=== PATIENT | male | born 2000 | race Caucasian/White ===

== ENCOUNTER 2024-10-06 09:00 | Outpatient (OUT) | payer OTHER, SELFPAY ==
--- OUTSIDE RECORDS SUMMARY | 2023-04-21 10:00 | XMS_ITS ---
Author Organization [facility] Address [address] [place] [address] Care Team Providers Care Supervisor Scenic Arts Name Role Phone Mansi Guerrero Primary Care Provider Bonnie Bustamante Unavailable [phone] REASON FOR VISIT FILLING Encounters Encounter Location Date [facility] [address] [facility] [place] [address] 04/21/2023 Bonnie Scott Plan Of Treatment No Information Progress Notes * AMIE DYER:[birth year] (23 yo M)Acc No.[id number]:04/21/2023 Patient: Antolin AGRAWALAMIE Provider: Armida SCOTT DDS :2000 A ge:22 Y S ex:Male Date:04/21/2023 [address] [id number] Pcp:Mansi Guerrero Subjective: * Chief Complaints: * 1 . FILLING. * Medical History: Objective: * Vitals: Assessment: Plan: * Treatment: * Images: * Electronic signature of Verona Scott DDS on 10/06/2024 at 09:05 AM EDT Sign off status: Pending * Provider: Armida SCOTT DDS Date: 04/21/2023 Generated for Printi ng/Faxing/eTransmitting on: 0 10/06/2024 09:05 AM EDT
--- OUTSIDE RECORDS SUMMARY | 2023-09-22 11:40 | XMS_ITS ---
Author Organization [facility] Address [address] [place] [address] Care Team Providers Care Tunnel Heading Supervisor Name Role Phone Mansi Guerrero Primary Care Provider [phone] Shania Nadia Singletary Unavailable [phone] REASON FOR VISIT PROPHY EXAM Encounters Encounter Location Date Provider Diagnosis [facility] [address] [place] [address] 09/22/2023 Nadia Singletary Plan Of Treatment No Information Progress Notes * AMIE DYER:[birth year] (23 yo M)Acc No.[id number]:09/22/2023 Patient: Antolin AGRAWALAMIE Provider: Etienne Singletary :2000 A ge:22 Y S ex:Male Date:09/22/2023 Address: [address] [place], [place] [id number] Pcp:Mansi Guerrero Subjective: * Chief Complaints: * 1 . PROPHY EXAM. * Medical History: Objective: * Vitals: Assessment: Plan: * Treatment: * Images: * Electronic signature of Fadumo Singletary on 10/06/2024 at 09:05 AM EDT Sign off status: Pending * Provider: Etienne Singletary Date: 09/22/2023 Generated for Janiyai ng/Faromulog/eTransmitting on: 10/06/2024 09:05 AM EDT
--- NOTE | 2024-10-06 | CT_ITS ---
The [address] [address] Patient Name: AMIE DYER MRN: [id number] date: 2000 Sex: M Assigned Patient Location: CT Current Patient Location: CT Accession/Order Number: [id number] Exam Date: 10/06/2024 10:53 Report Date: 10/06/2024 11:05 At the request of: CLOVIS HINSON MD Procedure: CT abdomen pelvis w con CT ABDOMEN AND PELVIS WITH INTRAVENOUS CONTRAST: CLINICAL HISTORY: Right upper quadrant pain R10.13 COMPARISON: None TECHNIQUE: Spiral images were obtained through the abdomen and pelvis following the administration of intravenous contrast. This CT exam was performed using one or more following dose reduction techniques: Automated exposure control, adjustment of the mA and/or kV according to patient size, or use of iterative reconstruction technique. FINDINGS: Lung Bases: [No acute process.] Organs:Gallbladder is contracted. Liver portal vein pancreas spleen and adrenal glands all appear unremarkable. Subcentimeter low attenuating lesion right kidney too small for accurate characterization. Left kidney appears unremarkable. Aorta appears normal in caliber.[ GI: Stomach is grossly unremarkable. Small bowel appears nondilated. Appendix is normal. No acute colonic abnormality is seen.[ Pelvis:[Urinary bladder and prostate gland appear unremarkable.] Peritoneum/Retroperitoneum:No free air or free fluid or lymphadenopathy.[Prominent right lower quadrant lymph nodes. Abd wall/Bones:Abdominal wall demonstrates no acute process. Osseous structures demonstrate no acute findings. Scoliosis.[ CT/CT abdomen pelvis w con IMPRESSION: No acute process. Prominent right lower quadrant lymph nodes. Finding is nonspecific. Attention on follow-up is suggested. Impression dictated by: Elliot Bonilla Jr., D.O. 10/06/2024 11:05 AM Dictation Location: [place] [address] Electronically authenticated by: [id number] Y Date: 10/06/2024 11:05
--- OUTSIDE RECORDS SUMMARY | 2024-10-06 09:05 | XMS_ITS | Clinical Summary ---
Author Organization [facility] Address [address], [address] [place] [address] Care Team Providers Care Saw Runner Name Role Phone House Sr., DO Boom Pak Primary Care Provider + Allergies No known active allergies Medications No known medications Social History Tobacco Use Types Packs/Day Years Used Date Smoking Tobacco: Never Assessed Smokeless Tobacco: Never Sex and Gender Information Value Date Recorded Sex Assigned at Not on file Legal Sex Male 2:43 AM EST Gender Identity Not on file Sexual Orientation Not on file Last Filed Vital Signs Vital Sign Reading Time Taken Comments Blood Pressure - - Pulse - - Temperature 36 C (96.8 F) 12/10/2017 11:27 AM EDT Respiratory Rate - - Oxygen Saturation - - Inhaled Oxygen Concentration - - Weight 92.5 kg (204 lb) 12/10/2017 11:27 AM EDT Height 160 cm (5' 3 ) 12/10/2017 11:27 AM EDT Body Mass Index 36.14 12/10/2017 11:27 AM EDT Plan of Treatment Not on file Insurance [facility] Care Teams Saw Runner Relationship Specialty Start Date End Date Boom Galaviz Sr., DO [address] [place] [address] PCP - General Family Medicine 12/10/17
--- OUTSIDE RECORDS SUMMARY | 2024-10-06 09:05 | XMS_ITS | Clinical Summary ---
Author Organization [facility] Address [address] [place] [address] [place] [address] Care Team Providers Care Storeperson Name Role Phone Unavailable Primary Care Provider Unavailabl e Allergies Active Allergy Reactions Criticality Noted Date Comments Ivp Dye, Iodine Containing 0 Latex Rash 06/01/2014 Medications methocarbamol 500 MG tablet Take 500 mg by mouth 2 times daily. 11/14/2019 Active naproxen 500 MG tablet Take 500 mg by mouth 2 times daily. 12/05/2019 Active Social History Tobacco Use Types Packs/Day Years Used Date Smoking Tobacco: Never Assessed Sex and Gender Information Value Date Recorded Sex Assigned at Not on file Legal Sex Male 7:17 AM EDT Gender Identity Not on file Sexual Orientation Not on file Last Filed Vital Signs Vital Sign Reading Time Taken Comments Blood Pressure 135/83 12/28/2019 1:45 PM EDT Pulse 104 12/28/2019 1:45 PM EDT Temperature - - Respiratory Rate - - Oxygen Saturation - - Inhaled Oxygen Concentration - - Weight 77.1 kg (170 lb) 12/28/2019 1:45 PM EDT Height 160 cm (5' 3 ) 12/28/2019 1:45 PM EDT Body Mass Index 30.11 12/28/2019 1:45 PM EDT Plan of Treatment Health Maintenance Due Date Last Done Comments HEPATITIS C VIRUS SCREENING 2000 HIV SCREENING DISCUSSION 2013 TETANUS 05/10/2022 05/10/2012 COVID-19 VACCINE ( - 2023-2 5 season) 2023 INFLUENZA VACCINE (#1) 2024 4, 01/16/2010, 01/10/2009 HEP B VACCINE Completed 02/23/2000, 12/03/1999, 10/22/1999 PNEUMOCOCCAL VACCINE SERIES Aged Out 11/06, 02/13/2000 No longer eligible based on patient's age to complete this topic TDAP (ADULT) Completed 05/10/2012 HPV VACCINE ADOL Completed 07/25/2013, 05/23/2013, 05/10/2012 HPV VACCINE Completed 07/25/2013, 05/23/2013, 05/10/2012 Insurance [facility] PL[facility]
--- OUTSIDE RECORDS SUMMARY | 2024-10-06 09:05 | XMS_ITS | Clinical Summary ---
Author Organization [facility] Address [address] [place] [address] Phone Care Team Providers Care Beer Runner Name Role Phone Boom Galaviz DO Primary Care Provider [phone] Social History Tobacco Use Types Packs/Day Years Used Date Smoking Tobacco: Never Assessed Sex and Gender Information Value Date Recorded Sex Assigned at Not on file Legal Sex Male 3:24 PM EST Gender Identity Not on file Sexual Orientation Not on file Plan of Treatment Not on file Care Teams Beer Runner Relationship Specialty Start Date End Date Boom Galaviz DO PCP - General 08/07/15
== END 2024-10-06 09:01 | disposition home or self-care (01) ==
LOC: CT 09:03
PROVIDERS: PCP Nurse Practitioner Family; Visit Provider Surgery
DX: R10.11 Right upper quadrant pain (principal); R10.13 Epigastric pain; R11.2 Nausea with vomiting, unspecified; R19.4 Change in bowel habit; R93.5 Abnormal findings on diagnostic imaging of other abdominal regions, including retroperitoneum; K80.20 Calculus of gallbladder without cholecystitis without obstruction
CPT/HCPCS: 74177; Q9967